=== PATIENT | male | born 1960 | race Caucasian/White ===

== ENCOUNTER → 2021-04-20 | Outpatient (CLI) | payer BC ==
[~2021-04-20] VITALS: Ht 180.3 cm; Wt 82.9 kg
[~2021-04-20] MED LIST: ASPI-999 PO; LOSA50TA63 PO; PITA1TAB PO; RIVA2.5T5 PO
== END ==
LOC: PREOP 09:31
PROVIDERS: ATTEND Surgery
DX: Z01.818 Encounter for other preprocedural examination (principal)

== ENCOUNTER 2021-05-01 07:12 | Day surgery (SDC) | payer BC ==
[~2021-05-01] VITALS: Ht 180.3 cm; Wt 82.9 kg
[2021-05-01] MEDS ORDERED: LACTATED RINGERS 1,000 ML IV ONE (07:23)
[2021-05-01] MEDS ORDERED: LACTATED RINGERS 1,000 ML IV STA (07:52)
[2021-05-01] MEDS ORDERED: PROPOFOL INJECTION 50 ML IV ONE (07:55)
[2021-05-01 08:07] VITALS: BP 121/96
--- NOTE | 2021-05-01 08:13 | Progress Note-Pre Operative ---
Pre-Operative Progress Note H&P Reviewed The H&P was reviewed, patient examined and no changes noted. Time Seen by Provider: 08:10 Date H&P Reviewed: May 01, 2021 Time H&P Reviewed: 08:10 Pre-Operative Diagnosis: rectal bleeding JAJA WALLACE DO May 01, 2021 08:13
--- NOTE | 2021-05-01 09:18 | Anesthesia-General Post-Op ---
MAC Patient Condition Mental Status/LOC: Same as Preop Cardiovascular: Satisfactory Nausea/Vomiting: Absent Respiratory: Satisfactory Pain: Controlled Complications: Absent Post Op Complications Complications None Follow Up Care/Instructions Patient Instructions None needed. Anesthesiology Discharge Order Discharge Order Patient is doing well, no complaints, stable vital signs, no apparent adverse anesthesia problems. No complications reported per nursing. SHEILA GILL CRNA May 01, 2021 09:18
[2021-05-01 09:21] VITALS: BP 102/64
--- NOTE | 2021-05-01 09:22 | Progress Note-Post Operative ---
Post-Operative Progess Note Surgeon (s)/Gyro Mechanic (s) Surgeon JAJA WALLACE DO Gyro Mechanic: RASHMI MeiII Pre-Operative Diagnosis rectal bleeding Post-Operative Diagnosis Polyps int hemorrhoids Anal mass Procedure & Operative Findings Date of Procedure 05/01/21 Procedure Performed/Findings Colon with snare PROCEDURE NOTE: After informed consent was obtained, the patient was brought to the endoscopy suite, placed in bed in left lateral decubitus position. He was administered IV sedation by the AGRICULTURAL EDUCATION PROFESSOR who then monitored his vitals the entire time, heart rate, blood pressure and pulse ox and the scope was inserted, pushed all the way to about [address] in note a polyp on a stalk in the transverse colon and did a snare polypectomy of it. Then pushed into the cecum, took a picture of the appendiceal orifice and noted a small polyp in the cecum; removed this with the snare polypectomy as well. Finally started to slowly withdrew the scope insufflating to look circumferentially at the ramos starting in the cecum, up the ascending colon to the hepatic flexure, then down the transverse colon to the splenic flexure, into the descending colon down into the sigmoid and then into the rectal vault. I saw another small polyp in the rectum which was also removed with a snare. When I retroflexed the scope I saw a large anal mass right on dentate line. Started to remove this; in pieces with the snare (hot) and was able to get almost all of it. It was hard to tell if this was rectum or anal canal; may have been both. Took a picture of the internal hemorrhoids. The patient tolerated the procedure. He was recovered in endoscopy suite. Anesthesia Type IV sedation by AGRICULTURAL EDUCATION PROFESSOR Estimated Blood Loss Estimated blood loss (mL): scant Specimens/Packing Specimens Removed transverse polyp cecal rectal anal/rectal mass JAJA WALLACE DO May 01, 2021 09:22
--- NOTE | 2021-05-01 09:23 | Endoscopy Discharge Instruct ---
Endo Procedure/Findings Findings 1.: Polyp 2.: Other Findings (Anal mass) 3.: Internal Hemorrhoids Discharge Instructions - Activity: You might feel a little sleepy until tomorrow. This is due to the medicine you received to relax you. Until tomorrow, you should: NOT drive a car, operate machinery or power tools. NOT drink any alcoholic beverages. NOT make any important decisions or sign importortant papers. Do not return to work until tomorrow, unless otherwise instructed. Resume previous activities tomorrow. Diet: Start by taking liquids. If you tolerate liquids, advance to solid food. 1.: Colonoscopy in 1 year Notify Physician - If you experience excessive bleeding, unusual abdominal pain, fever, or chest pain, contact your doctor immediately. JAJA WALLACE DO May 01, 2021 09:23
[2021-05-01 09:26] VITALS: BP 115/77
[2021-05-01 09:30] VITALS: BP 114/67
[2021-05-01 10:00] VITALS: BP 122/73
== END 2021-05-01 10:00 | disposition home or self-care (01) ==
LOC: ENDO 07:12
PROVIDERS: ATTEND Surgery
DX: D12.3 Benign neoplasm of transverse colon (principal); D12.0 Benign neoplasm of cecum; D12.8 Benign neoplasm of rectum; D12.9 Benign neoplasm of anus and anal canal; K62.5 Hemorrhage of anus and rectum; K64.8 Other hemorrhoids; K40.21 Bilateral inguinal hernia, without obstruction or gangrene, recurrent; I10 Essential (primary) hypertension; E78.5 Hyperlipidemia, unspecified; F17.210 Nicotine dependence, cigarettes, uncomplicated; Z86.73 Personal history of transient ischemic attack (TIA), and cerebral infarction without residual deficits; Z79.82 Long term (current) use of aspirin; Z79.899 Other long term (current) drug therapy
CPT/HCPCS: 88305; 88341; 88342

== ENCOUNTER 2021-05-12 05:34 | Outpatient (CLI) | payer BC ==
[~2021-05-12] VITALS: Ht 177.8 cm; Wt 82.9 kg
== END 2021-05-12 11:01 | disposition home or self-care (01) ==
LOC: PREOP 05:34
PROVIDERS: ATTEND Surgery
DX: Z01.818 Encounter for other preprocedural examination (principal)

== ENCOUNTER 2021-05-19 07:08 | Day surgery (SDC) | payer BC ==
[~2021-05-19] VITALS: Ht 177.8 cm; Wt 82.9 kg
[2021-05-19] VITALS (11 sets, daily range): BP systolic 112–137; BP diastolic 62–85
[2021-05-19] MEDS: LACTATED RINGERS 1,000 ML IV PRN ×2 (07:48→09:40)
[2021-05-19] MEDS ORDERED: LIDOCAINE PF 2% 5 ML (XYLOCAINE) VIAL ONE (08:57)
[2021-05-19] MEDS ORDERED: fentaNYL INJ 100 MCG/2 ML AMP ONE (08:57)
[2021-05-19] MEDS ORDERED: MIDAZOLAM 2 MG/2 ML (VERSED) VIAL ONE (08:57)
[2021-05-19] MEDS ORDERED: ONDANSETRON 4 MG/2 ML (SDV) Z0FRAN ONE (08:57)
[2021-05-19] MEDS ORDERED: proPOfol 200 MG/20 ML (DIPRIVAN) VIAL IV ONE (08:57)
--- NOTE | 2021-05-19 09:03 | Progress Note-Pre Operative ---
Pre-Operative Progress Note H&P Reviewed The H&P was reviewed, patient examined and no changes noted. Time Seen by Provider: 08:58 Date H&P Reviewed: May 19, 2021 Time H&P Reviewed: 08:58 Pre-Operative Diagnosis: Colon cancer/Anal cancer JAJA WALLACE DO May 19, 2021 09:03
[2021-05-19] MEDS ORDERED: LIDOCAINE/EPI 1%-1:100,000 (XYLOCAINE) 20ML ONE (09:05)
[2021-05-19] MEDS ORDERED: ROCURONIUM 10 MG/ML 5 ML SYRINGE IV ONE (09:12)
[2021-05-19] MEDS ORDERED: GLYCOPYRROLATE 0.2 MG/ML (ROBINUL) 2 ML VIAL ONE (09:18)
[2021-05-19] MEDS ORDERED: NEOSTIGMINE 3 MG/3 ML VIAL ONE (09:18)
[2021-05-19] MEDS ORDERED: LIDOCAINE UROJET 2% GEL 10 ML PKG ONE (09:49)
[2021-05-19] MEDS ORDERED: SEVOFLURANE (ULTANE) 15 ML INHAL SOLN ONE (09:50)
--- NOTE | 2021-05-19 09:50 | Progress Note-Post Operative ---
Post-Operative Progess Note Surgeon (s)/Speech Language Assistant (s) Surgeon JAJA WALLACE DO Speech Language Assistant: ARSLAN Mandujano Pre-Operative Diagnosis Colon cancer/Anal cancer Post-Operative Diagnosis same pending path Procedure & Operative Findings Date of Procedure 05/19/21 Procedure Performed/Findings Transanal excision of rectal CA Anesthesia Type LMA Estimated Blood Loss Estimated blood loss (mL): scant Specimens/Packing Specimens Removed rectal mass JAJA WALLACE DO May 19, 2021 09:50
--- NOTE | 2021-05-19 09:53 | Discharge Inst-Surgical ---
Discharge Inst-Surgical Depart Medication/Instructions New, Converted or Re-Newed RX: Other (use ibuprofen) Patient Instructions Follow up Appt: Make appointment for 1 week. [phone] Instructions: No lifting greater than 20 pounds. No strenuous activity. May shower in 24 hours or tub bath or soaking. Use incentive spirometer at home as directed. No Smoking Skin/Wound Care: May remove rectal packing in am. Symptoms to Report: Appetite Changes, Extremity Discoloration, Numbness/Tingling, Swelling Increased, Bleeding Excessive, Eyesight Changes, Pain Increased, Urine Color Change, Constipation(Persistent), Fever over 101 degree F, Pain/Pressure in chest, Urinating Difficulty, Cough Up/Vomit Blood, Heart Beat Irreg/Pounding, Pain/Pressure in jaw, Cramps in feet or legs, Lightheadedness, Pain/Pressure in shoulder, Diarrhea(Persistent), Memory Changes Suddenly, Questions/Concerns, Weight gain consecutive days, Dizziness/Fainting, Nausea/Vomiting, Shortness of Breath, Weight gain over 2 pounds If questions or concerns contact your physician Or seek help at emergency department. Activity Activity as Tolerated: Yes Driving Instructions: No Driving/Refer to Dr. Noble Discharge Diet: No Restrictions If Any Problems/Questions/Issu: Contact Your Physician, Go to Emergency Room Skin/Wound Care Infection Signs and Symptoms: Increased Redness, Foul Odor of Wound, Increased Drainage, Skin Itchy or Has a Rash, Increased Swelling, Temperature Above 101 F Bathing Instructions: JAJA Diego DO May 19, 2021 09:53
[2021-05-19] MEDS ORDERED: ONDANSETRON 4 MG/2 ML (SDV) Z0FRAN IVP PRN (10:15)
[2021-05-19] MEDS ORDERED: morphine INJ 10 MG/ML 1ML (SYR OR VIAL) IVP ONE (10:15)
[2021-05-19] MEDS ORDERED: HYDROmorphone 2 MG/ML VIAL (DILAUDID) IV ONE (10:15)
--- NOTE | 2021-05-19 12:03 | Anesthesia-General Post-Op ---
General Patient Condition Mental Status/LOC: Same as Preop Cardiovascular: Satisfactory Nausea/Vomiting: Absent Respiratory: Satisfactory Pain: Controlled Complications: Absent Post Op Complications Complications None Follow Up Care/Instructions Patient Instructions None needed. Anesthesia/Patient Condition Patient Condition Patient was doing well after the procedure, no complaints, stable vital signs, no apparent adverse anesthesia problems. LATIA GAINES DO May 19, 2021 12:03
--- NOTE | 2021-05-20 00:35 | OPERATIVE REPORT ---
DATE OF SERVICE: 05/19/2021 PREOPERATIVE DIAGNOSIS: Rectal cancer. POSTOPERATIVE DIAGNOSIS: Rectal cancer, pending pathology. PROCEDURE: Transanal excision of rectal mass and cancer. SURGEON: Kj Wallace, PSYCHOSOCIAL REHABILITATION COUNSELOR: Oswaldo Klein, 3. ANESTHESIA: LMA. SPECIMEN: Rectal mass, possibly cancer. BLOOD LOSS: Scant. FLUIDS: Per anesthesia. POSTOPERATIVE CONDITION: Stable. INDICATION FOR PROCEDURE: The patient is a 60-year-old male who had a recent colonoscopy. During the colonoscopy, he found to have a very low polyp down near the dentate line, removed almost all of it, and then sent to pathology and found to have a small focus of invasive cancer, which did not look like it was in the base. Need to go back to make sure all this was removed. FINDINGS: The patient had a rectal mass that was at the 12 o'clock position when the patient was in lithotomy, removed and sent to pathology. PROCEDURE NOTE: After informed consent was obtained, the patient was brought to the operating room, placed on table in lithotomy position. He was sterilely prepped and draped in normal fashion, had a little bit of retained fecal material, had flushed this out and then able to place the speculum, looked around and saw a small area of what looked just like a polyp or mass. This I believe, it felt like this is where the previous resection was performed based with polyp removal with a hot snare and did not see any, also feel anything else, grasped this with an Allis and then used a Harmonic scalpel to cut this off. There was another area just next to this looked like it was part of the old/recent excision. This was also removed. Both of these pieces were passed off table, looked around, did not see any other obvious pathology. Prior to doing this, we had done some ischial tuberosity blocks as well as blocking with local around the anus. There were some small tears in the anal skin from the speculum. There was no bleeding at the end of the case. Elected to place a Gelfoam with lidocaine gel around into the rectum. Area was cleaned and dried and a dressing was placed and just a four ABD with some mesh panties to hold this in place. He was then transferred to recovery room in stable condition. Sponge, instrument and needle count correct at the end of the case. Job ID: [id number] DocumentID: [id number] Dictated Date: 05/19/2021 16:09:00 Technical Rep Date: 05/20/2021 00:34:49 Dictated By: KJ WALLACE DO
== END 2021-05-19 12:00 | disposition home or self-care (01) ==
LOC: SDC 07:08
PROVIDERS: ATTEND Surgery
DX: D12.9 Benign neoplasm of anus and anal canal (principal); I10 Essential (primary) hypertension; E78.5 Hyperlipidemia, unspecified; K64.0 First degree hemorrhoids; E78.00 Pure hypercholesterolemia, unspecified; F17.210 Nicotine dependence, cigarettes, uncomplicated; Z79.82 Long term (current) use of aspirin; Z79.899 Other long term (current) drug therapy; Z82.3 Family history of stroke; Z80.0 Family history of malignant neoplasm of digestive organs
CPT/HCPCS: 87081

== ENCOUNTER 2021-06-02 08:12 | Outpatient (CLI) | payer BC ==
[~2021-06-02] VITALS: Ht 179.1 cm; Wt 81.7 kg
[2021-06-06] MEDS ORDERED: ASPI-999 PO (09:49)
[2021-06-06] MEDS ORDERED: RIVA20TA PO (09:49)
[2021-06-06] MEDS ORDERED: PITA4TAB2 PO (09:49)
[2021-06-07] MEDS ORDERED: ACHD5005 PO (10:55)
== END 2021-06-06 09:59 | disposition home or self-care (01) ==
LOC: PREOP 08:12
PROVIDERS: ATTEND Surgery
DX: Z01.818 Encounter for other preprocedural examination (principal)

== ENCOUNTER 2021-06-07 06:42 | Day surgery (SDC) | payer BC ==
[2021-06-07] VITALS (12 sets, daily range): BP systolic 107–137; BP diastolic 68–84
[~2021-06-07] VITALS: Ht 179 cm; Wt 81.7 kg
[~2021-06-07 06:42] MED LIST changes: +PITA4TAB2 PO; +RIVA20TA PO
[2021-06-07] MEDS ORDERED: ceFAZolin 2 GM IV Premixed 50 ML IV ONE (07:00)
[2021-06-07] MEDS ORDERED: LIDOCAINE/EPI 1%-1:100,000 (XYLOCAINE) 20ML ONE (07:19)
[2021-06-07] MEDS: LACTATED RINGERS 1,000 ML IV PRN ×2 (07:27→09:00)
[2021-06-07] MEDS ORDERED: MIDAZOLAM 2 MG/2 ML (VERSED) VIAL ONE (07:57)
[2021-06-07] MEDS ORDERED: ONDANSETRON 4 MG/2 ML (SDV) Z0FRAN ONE (07:57)
[2021-06-07] MEDS ORDERED: fentaNYL INJ 100 MCG/2 ML AMP ONE (07:57)
[2021-06-07] MEDS ORDERED: NEOSTIGMINE 3 MG/3 ML VIAL ONE (07:57)
[2021-06-07] MEDS ORDERED: GLYCOPYRROLATE 0.2 MG/ML (ROBINUL) 2 ML VIAL ONE (07:57)
[2021-06-07] MEDS ORDERED: proPOfol 200 MG/20 ML (DIPRIVAN) VIAL IV ONE (07:57)
[2021-06-07] MEDS ORDERED: ROCURONIUM 10 MG/ML 5 ML SYRINGE IV ONE ×2 (07:57→09:30)
[2021-06-07] MEDS ORDERED: LIDOCAINE PF 2% 5 ML (XYLOCAINE) VIAL ONE (07:57)
--- NOTE | 2021-06-07 08:19 | Progress Note-Pre Operative ---
Pre-Operative Progress Note H&P Reviewed The H&P was reviewed, patient examined and no changes noted. Time Seen by Provider: 08:16 Date H&P Reviewed: Jun 07, 2021 Time H&P Reviewed: 08:16 Pre-Operative Diagnosis: Right inguinal hernia (site marked), possible left inguinal hernia JAJA WALLACE DO Jun 07, 2021 08:18
[2021-06-07] MEDS ORDERED: HYDROmorphone 2 MG/ML VIAL (DILAUDID) ONE (09:11)
[2021-06-07] MEDS ORDERED: SEVOFLURANE (ULTANE) 15 ML INHAL SOLN ONE (10:51)
--- NOTE | 2021-06-07 10:54 | Progress Note-Post Operative ---
Post-Operative Progess Note Surgeon (s)/Diesel Engine Erector (s) Surgeon JAJA WALLACE DO Diesel Engine Erector: Beba Pre-Operative Diagnosis Right inguinal hernia (site marked), possible left inguinal hernia Post-Operative Diagnosis Indirect Inguinal Hernia - Right Procedure & Operative Findings Date of Procedure 06/07/21 Procedure Performed/Findings 1) Laparoscopic Right inguinal hernia with mesh - robotic assisted 2) Excision of cord lipoma After informed consent was obtained, the patient was brought to the operating room and placed on the operating table in a supine position. He was sterilely prepped and draped in a normal fashion. Local lidocaine was used to infiltrate the skin above the umbilicus. I made an incision with #11 blade, carried down to the skin into subcutaneous tissue and then deepened down the subcutaneous tissue with Bovie electrocautery down to the fascia. Fascia was incised with Bovie electrocautery and bluntly entered the abdomen, swept a finger around, placed 0 Vicryl cydsne-we-opika suture and placed limited trocar port under direct visualization. Created pneumoperitoneum, able to visualize the hernia and took a picture of this and then placed two 8 mm ports about 10 cm on either side of the midline port using a local lidocaine, 11 blade for stab incision and then advanced the robotic port under direct visualization. Once this was in, I then placed the patient in Trendelenburg and then placed the working instruments, the fenestrated bipolar and the scissors. Looked on the left side and saw no signs of inguinal hernia; it was covered by intestine. I could see a large direct hernia defect on the right side. Next, I came across the peritoneum approximately 8 cm away from the hernia defect, going across laterally starting lateral about 17cm and cutting toward the median umbilical ligament. I then carefully dissected the visceral peritoneum away and down and then in the midline, went through the parietal side and dissected down to the pubic tubercle, dissecting this down carefully pushing the peritoneum away, I was able to then visualize the pubic tubercle and Mike's ligament. I went 2 cm posterior and at this point, we then had a critical view of the dissection, able to dissect 2 cm across the midline to the right side, 2 cm posterior to the Mike's ligament, able to then parietalize the vas deferens and spermatic vessels right at the groove between Mike's and iliac vein and able to dissect, make sure there was no peritoneum between those two, able to see the indirect hernia space, took a picture of this, looked at the femoral space (no hernia seen). Then I carefully teased out the hernia sac and could visualize the indirect hernia space. Next I looked on the cord and cord structures. There was a large cord lipoma that I was able to reduce and cut off. This was then removed through the port to get it out of the peritoneal space. I could clearly see the inguinal canal and the indirect space. Next I carried the posterior lateral dissection all the way out and then placed a 12 x 17 Midwieght Bard 3DMax mesh. It laid in nicely, covered the hernia defect and the rest of the area. It was above the peritoneum, sutured it at the pubic tubercle with a 3-0 Vicryl suture and tied this off. This appeared to lay in very nicely. I then brought down the pneumoperitoneum to about 8 mmHg and then started closing the peritoneum. Started laterally and used a 2-0 V-lock barbed suture to start a running stitch to close the peritoneum. There was a small hole in the peritoneum and fixed this with 2 figure of eight, 3-0 Vicryl sutures. This was closed nicely, took a picture of the closure at this point, then removed both needles had switched to a suture delivery route driver from the scissors. The patient was then placed back supine, removed all ports under direct visualization, allowed pneumoperitoneum to escape and then closed the supraumbilical incision, closing the fascia with 0 Vicryl suture previously placed. Copiously irrigated all incisions and then closed the two small 8 mm incisions with two interrupted 4-0 undyed Monocryl subcuticular stitches and closed the supraumbilical incision with three interrupted undyed Monocryl subcuticular stitch. Area was cleaned and dried. Dermabond was placed. The patient tolerated the procedure. The sponge, instrument and needle counts were correct at the end of the case. Dr. Yoder assisted during this surgery by making incisions, closing incisions, helping to identify anatomy and passing/retrieving suture and needles. Anesthesia Type GET Estimated Blood Loss Estimated blood loss (mL): less than 10 ml Specimens/Packing Specimens Removed cord lipoma JAJA WALLACE DO Jun 07, 2021 10:54
[2021-06-07] MEDS ORDERED: ACHD5005 PO (10:55)
--- NOTE | 2021-06-07 10:57 | Discharge Inst-Surgical ---
Discharge Inst-Surgical Depart Medication/Instructions New, Converted or Re-Newed RX: Transmitted to Pharmacy Patient Instructions Follow up Appt: Make appointment for 1 week. [phone] Instructions: No lifting greater than 20 pounds. No strenuous activity. May shower in 24 hours, no tub bath or soaking. Use incentive spirometer at home as directed. No Smoking Skin/Wound Care: May remove bandages in am. You need to leave the Dermabond on incision it will fall off on it's own. Symptoms to Report: Appetite Changes, Extremity Discoloration, Numbness/Tingling, Swelling Increased, Bleeding Excessive, Eyesight Changes, Pain Increased, Urine Color Change, Constipation(Persistent), Fever over 101 degree F, Pain/Pressure in chest, Urinating Difficulty, Cough Up/Vomit Blood, Heart Beat Irreg/Pounding, Pain/Pressure in jaw, Cramps in feet or legs, Lightheadedness, Pain/Pressure in shoulder, Diarrhea(Persistent), Memory Changes Suddenly, Questions/Concerns, Weight gain consecutive days, Dizziness/Fainting, Nausea/Vomiting, Shortness of Breath, Weight gain over 2 pounds If questions or concerns contact your physician Or seek help at emergency department. Activity Activity as Tolerated: Yes Activity Instructions: Avoid Stress to Incision Driving Instructions: No Driving/Refer to Dr. Noble Discharge Diet: No Restrictions Diet After 24 Hours: Clear Liquid if Nauseous If Any Problems/Questions/Issu: Contact Your Physician, Go to Emergency Room Skin/Wound Care Infection Signs and Symptoms: Increased Redness, Foul Odor of Wound, Increased Drainage, Skin Itchy or Has a Rash, Increased Swelling, Temperature Above 101 F Wound Care Comment: heating pad to shoulder or neck tonight for pain Bathing Instructions: Shower Stitches/[place]/Dermabond Dis: Dermabond Ice Pack: Ice On and Off Site JAJA WALLACE DO Jun 07, 2021 10:57
[2021-06-07] MEDS ORDERED: morphine INJ 10 MG/ML 1ML (SYR OR VIAL) IVP ONE (11:00)
[2021-06-07] MEDS ORDERED: HYDROmorphone 2 MG/ML VIAL (DILAUDID) IV ONE (11:00)
[2021-06-07] MEDS ORDERED: ONDANSETRON 4 MG/2 ML (SDV) Z0FRAN IVP PRN (11:00)
[2021-06-07] MEDS ORDERED: HYDROcodone/APAP 5 MG/325 MG (LORTAB) TAB PO ONE (13:15)
[2021-06-07] MEDS ORDERED: HYDROcodone/APAP 5 MG/325 MG (LORTAB) TAB ONE (13:19)
--- NOTE | 2021-06-12 12:46 | Anesthesia-General Post-Op ---
General Patient Condition Mental Status/LOC: Same as Preop Cardiovascular: Satisfactory Nausea/Vomiting: Absent Respiratory: Satisfactory Pain: Controlled Complications: Absent Post Op Complications Complications None Follow Up Care/Instructions Patient Instructions None needed. Anesthesia/Patient Condition Patient Condition Post-dated progress note: Patient was seen on 06-07-21 at approximately noon after the procedure and he was doing well, no complaints, stable vital signs, no apparent adverse anesthesia problems. LATIA GAINES DO Jun 12, 2021 12:46
== END 2021-06-07 14:00 | disposition home or self-care (01) ==
LOC: SDC 06:42
PROVIDERS: ATTEND Surgery
DX: K40.90 Unilateral inguinal hernia, without obstruction or gangrene, not specified as recurrent (principal); I10 Essential (primary) hypertension; F17.210 Nicotine dependence, cigarettes, uncomplicated; E78.00 Pure hypercholesterolemia, unspecified; C20 Malignant neoplasm of rectum; Z79.899 Other long term (current) drug therapy; Z79.82 Long term (current) use of aspirin; Z79.01 Long term (current) use of anticoagulants; Z86.73 Personal history of transient ischemic attack (TIA), and cerebral infarction without residual deficits; Z85.038 Personal history of other malignant neoplasm of large intestine
CPT/HCPCS: 49650; 87081; 94664; C1781